=== PATIENT | female | born 1955 | race Two or more races ===

== ENCOUNTER 2018-01-07 16:19 | Observation (INO) | payer SELFPAY ==
[2018-01-07] MEDS ORDERED: Sodium Chloride 0.9% 1,000 ML IV STA (19:58)
--- NOTE | 2018-01-07 20:11 | ED PDOC ---
HPI: Abdomen Time Seen by Provider: 01/07/18 19:32 Chief Complaint (Nursing): Abdominal Pain Chief Complaint (Provider): abdominal pain History Per: Patient History/Exam Limitations: no limitations Onset/Duration Of Symptoms: Days (x4), Worse Since (onset) Current Symptoms Are (Timing): Still Present Associated Symptoms: Nausea, Vomiting (4 episodes), Constipation. denies: Fever , Chills, Chest Pain Last Bowel Movement: Days Ago (x4) Additional Complaint(s): Noel Driver is a 62 year old female, with a past medical history of breast cancer, mastectomy, HTN, dyslipidemia and diabetes, who presents to the emergency department complaining of a progressively worsening abdominal pain associated with nausea and vomit onset for x4 days. Patient reports x4 episodes of vomiting yesterday, and no bowel movements for the past 4 days, only gas. She saw Dr. Groves who evaluated and referred her here for further workout. Patient was seen last week and told to have an MRI but she was unable to schedule. She denies any fever, chills, chest pain or shortness of breath. No further medical complaints. PMD: Denis Groves Past Medical History Reviewed: Historical Data, Nursing Documentation, Vital Signs Vital Signs: Last Vital Signs Temp 97.6 F 01/08/18 03:06 Pulse 71 01/08/18 04:06 Resp 20 01/08/18 04:06 BP 143/80 01/08/18 03:06 Pulse Ox 100 01/08/18 04:06 - Medical History PMH: Diabetes, HTN, Hyperlipidemia Other PMH: breast cancer - Surgical History Surgical History: No Surg Hx Other surgeries: mastectomy - Family History Family History: States: Unknown Family Hx - Social History Current smoker - smoking cessation education provided: No Alcohol: None Drugs: Denies - Immunization History Hx Tetanus Toxoid Vaccination: No Hx Influenza Vaccination: No Hx Pneumococcal Vaccination: No - Home Medications Home Medications: Ambulatory Orders Medication Instructions Recorded Cyclobenzaprine [Flexeril] 5 mg PO HS 01/08/18 - Allergies Allergies/Adverse Reactions: Allergies Allergy/AdvReac Type Severity Reaction Status Date / Time No Known Allergies Allergy Verified 01/07/18 16:53 Review of Systems ROS Statement: Except As Marked, All Systems Reviewed And Found Negative Constitutional: Negative for: Fever, Chills Cardiovascular: Negative for: Chest Pain Respiratory: Negative for: Shortness of Breath Gastrointestinal: Positive for: Nausea, Vomiting (4 episodes), Abdominal Pain, Constipation Physical Exam - Reviewed Nursing Documentation Reviewed: Yes Vital Signs Reviewed: Yes - Physical Exam Appears: Positive for: Non-toxic, No Acute Distress Head Exam: Positive for: ATRAUMATIC, NORMAL INSPECTION, NORMOCEPHALIC Skin: Positive for: Normal Color, Warm, Dry Eye Exam: Positive for: Normal appearance Neck: Positive for: Painless ROM, Supple Cardiovascular/Chest: Positive for: Regular Rate, Rhythm. Negative for: Murmur Respiratory: Positive for: Normal Breath Sounds. Negative for: Respiratory Distress Gastrointestinal/Abdominal: Positive for: Bowel Sounds (hypoactive), Tenderness (mildly diffused), Distended Extremity: Positive for: Normal ROM. Negative for: Deformity, Swelling Neurologic/Psych: Positive for: Alert, Oriented. Negative for: Motor/Sensory Deficits - Laboratory Results Result Diagrams: 01/07/18 20:58 01/07/18 20:58 - ECG O2 Sat by Pulse Oximetry: 98 (RA) Pulse Ox Interpretation: Normal Medical Decision Making Medical Decision Making: Initial Impression: 62 y/o [place] island[place] female in setting of constipation, nausea and vomit Initial Plan: --Abd Pelvis IV Contrast [CT] --EKG --CMP --Lipase --Urine dipstick --CBC w/ differential --PTT --PT --Chest portable [RAD] --Glucose, POC --Morphine 2 mg IVP --Sodium Chlrodei 1,000 ml IV 1,000 mls/hr --Reglan 10 mg IVPB --Reevaluation 00:06 EXAM: CT Abdomen and Pelvis With Intravenous Contrast CLINICAL HISTORY: 62 years old, female; Pain; Abdominal pain; Localized; Other: Also back pain; Prior surgery; Surgery date: 6+ months; Surgery type: Patient states: Hysterectomy; Patient HX: Mastectomy left breast; Additional info: Possible sbo TECHNIQUE: Axial computed tomography images of the abdomen and pelvis with intravenous contrast. All CT scans at this facility use one or more dose reduction techniques, viz.: automated exposure control; ma/kV adjustment per patient size (including targeted exams where dose is matched to indication; i.e. head); or iterative reconstruction technique. Coronal and sagittal reformatted images were created and reviewed. CONTRAST: 80 mL of [id number] administered intravenously. COMPARISON: No relevant prior studies available. FINDINGS: Lower thorax: Borderline cardiomegaly. Mild atelectasis/scarring. LEFT mastectomy. Probable small hiatal hernia. ABDOMEN: Liver: Several hypodense lesions, up to 1.2 cm in size, indeterminate by CT criteria. Gallbladder and bile ducts: Tiny calcified gallstone. No significant ductal dilation. Pancreas: No ductal dilation. No mass. Spleen: No splenomegaly. Adrenals: No mass. Kidneys and ureters: No mass. No hydronephrosis. Stomach and bowel: Moderate to large amount of stool within colon. Mild dilatation of cecum/ascending colon. No definite mural thickening. No obstruction. Appendix: Borderline enlarged mid appendix, 6-7 mm in diameter. No definite associated inflammatory stranding. PELVIS: Bladder: Unremarkable. Reproductive: Unremarkable as visualized. ABDOMEN and PELVIS: Intraperitoneal space: No significant fluid collection. No free air. Bones/joints: Chronic L5 pars defects with anterolisthesis. Degenerative changes of lower lumbar spine. Mild compression deformity inferior end plate L2 vertebral body, age indeterminate. Mild wedge deformity T11 vertebral body, age indeterminate. Mild increased density T11, L2 vertebral bodies, indeterminate. Soft tissues: Tiny umbilical hernia containing fat. Vasculature: Mild atherosclerotic disease. No aneurysm. Linear filling defects versus admixture within common femoral veins. Lymph nodes: No pathologically enlarged lymph nodes. IMPRESSION: 1. Borderline enlarged appendix. No definite inflammation. Clinical correlation is needed. 2. Liver lesions, indeterminate. Metastatic disease not excluded. Recommend MRI. 3. Compression deformities/sclerosis of vertebral bodies. Metastatic disease not excluded. Recommend MRI. 4. Filling defects versus admixture within common femoral veins. Suggest ultrasound. 5. Incidental/non-acute findings are described above. THIS REPORT CONTAINS FINDINGS THAT MAY BE CRITICAL TO PATIENT CARE. The findings were verbally communicated via telephone conference with Rai Romero at 12:06 AM EDT on 01/08/2018. The findings were acknowledged and understood. --patient will be place on observation due to consistent abdominal pain and indeterminate liver lesions in setting of known breast cancer. --Patient case discussed with Dr. Groves, who is her PMD, and will be accepting her care. Scribe Attestation: Documented by Santo Adrian, acting as a scribe for Rai Palm MD Provider Scribe Attestation: All medical record entries made by the Scribe were at my direction and personally dictated by me. I have reviewed the chart and agree that the record accurately reflects my personal performance of the history, physical exam, medical decision making, and the department course for this patient. I have also personally directed, reviewed, and agree with the discharge instructions and disposition. Disposition - Clinical Impression Clinical Impression: Abdominal pain, Constipation - Patient ED Disposition Is Patient to be Admitted: Yes Discussed With DrAnnabelle: Denis Groves Doctor Will See Patient In The: Hospital Counseled Patient/Family Regarding: Studies Performed, Diagnosis - Disposition Disposition Time: 00:06 Condition: FAIR
[2018-01-07 21:08] LABS: BASO % 0.5 % (0.0-2.0); EOS % 0.5 % (0.0-4.0); HEMOGLOBIN 12.9 g/dL (12.0-16.0); LYMPH % 10.3 % (20.0-40.0); MEAN CELL VOLUME 90.7 fl (81.0-99.0); MEAN CORPUSCULAR HEMOGLOBIN 30.7 pg (27.0-31.0); MEAN CORPUSCULAR HGB CONC 33.8 g/dL (33.0-37.0); MEAN PLATELET VOLUME 7.4 fl (7.2-11.7); MONO # 0.7 K/uL (0.0-0.8); NEUT # 7.8 K/uL (1.8-7.0); NEUT % 81.7 % (50.0-75.0); RBC 4.21 Mil/uL (3.80-5.20); RED CELL DISTRIBUTION WIDTH 12.7 % (11.5-14.5); WHITE BLOOD COUNT 9.5 K/uL (4.8-10.8)
[2018-01-07 21:16] LABS: PARTIAL THROMBOPLASTIN TIME 32.4 Seconds (25.6-37.1); PROTHROMBIN TIME 10.8 Seconds (9.8-13.1)
[2018-01-07 21:23] LABS: ALB/GLOB RATIO 1.2 (1.0-2.1); ALBUMIN 4.7 g/dL (3.5-5.0); ALT/SGPT 43 U/L (9-52); AST/SGOT 77 U/L (14-36); BLOOD UREA NITROGEN 28 mg/dl (7-17); CALCIUM 10.5 mg/dL (8.4-10.2); GFR AFRICAN-AMERICAN > 60; GFR NON-AFRICAN AMERICAN 50; LIPASE 273 U/L (23-300)
[2018-01-07] MEDS ORDERED: Iodixanol 320 MG/ML 100 ML BOTTLE IV ONE (21:37)
[2018-01-07] MEDS ORDERED: Sodium Chloride 0.9% 100 ML ONE (21:38)
--- NOTE | 2018-01-08 00:06 | CT ---
EXAM: CT Abdomen and Pelvis With Intravenous Contrast CLINICAL HISTORY: 62 years old, female; Pain; Abdominal pain; Localized; Other: Also back pain; Prior surgery; Surgery date: 6+ months; Surgery type: Patient states: Hysterectomy; Patient HX: Mastectomy left breast; Additional info: Possible sbo TECHNIQUE: Axial computed tomography images of the abdomen and pelvis with intravenous contrast. All CT scans at this facility use one or more dose reduction techniques, viz.: automated exposure control; ma/kV adjustment per patient size (including targeted exams where dose is matched to indication; i.e. head); or iterative reconstruction technique. Coronal and sagittal reformatted images were created and reviewed. CONTRAST: 80 mL of [id number] administered intravenously. COMPARISON: No relevant prior studies available. FINDINGS: Lower thorax: Borderline cardiomegaly. Mild atelectasis/scarring. LEFT mastectomy. Probable small hiatal hernia. ABDOMEN: Liver: Several hypodense lesions, up to 1.2 cm in size, indeterminate by CT criteria. Gallbladder and bile ducts: Tiny calcified gallstone. No significant ductal dilation. Pancreas: No ductal dilation. No mass. Spleen: No splenomegaly. Adrenals: No mass. Kidneys and ureters: No mass. No hydronephrosis. Stomach and bowel: Moderate to large amount of stool within colon. Mild dilatation of cecum/ascending colon. No definite mural thickening. No obstruction. Appendix: Borderline enlarged mid appendix, 6-7 mm in diameter. No definite associated inflammatory stranding. PELVIS: Bladder: Unremarkable. Reproductive: Unremarkable as visualized. ABDOMEN and PELVIS: Intraperitoneal space: No significant fluid collection. No free air. Bones/joints: Chronic L5 pars defects with anterolisthesis. Degenerative changes of lower lumbar spine. Mild compression deformity inferior end plate L2 vertebral body, age indeterminate. Mild wedge deformity T11 vertebral body, age indeterminate. Mild increased density T11, L2 vertebral bodies, indeterminate. Soft tissues: Tiny umbilical hernia containing fat. Vasculature: Mild atherosclerotic disease. No aneurysm. Linear filling defects versus admixture within common femoral veins. Lymph nodes: No pathologically enlarged lymph nodes. IMPRESSION: 1. Borderline enlarged appendix. No definite inflammation. Clinical correlation is needed. 2. Liver lesions, indeterminate. Metastatic disease not excluded. Recommend MRI. 3. Compression deformities/sclerosis of vertebral bodies. Metastatic disease not excluded. Recommend MRI. 4. Filling defects versus admixture within common femoral veins. Suggest ultrasound. 5. Incidental/non-acute findings are described above. THIS REPORT CONTAINS FINDINGS THAT MAY BE CRITICAL TO PATIENT CARE. The findings were verbally communicated via telephone conference with Rai Romero at 12:06 AM EDT on 01/08/2018. The findings were acknowledged and understood.
[2018-01-08] MEDS ORDERED: Morphine 4 MG/ML VIAL IVP ONE (03:30)
[2018-01-08] MEDS: Dextrose 5%/Lactated Ringer's 1,000 ML IV SCH ×2 (09:10→17:58)
--- NOTE | 2018-01-08 09:20 | RAD ---
HISTORY: chest pain COMPARISON: No prior. FINDINGS: LUNGS: No active pulmonary disease. PLEURA: No significant pleural effusion identified, no pneumothorax apparent. CARDIOVASCULAR: Normal. OSSEOUS STRUCTURES: Degenerative changes. VISUALIZED UPPER ABDOMEN: Normal. OTHER FINDINGS: Left axillary surgical clips. IMPRESSION: No active disease.
[2018-01-08] MEDS ORDERED: Magnesium Citrate Oral SOL (300 ml) PO ONE (11:19)
--- NOTE | 2018-01-08 12:31 | CP.PCM.HP ---
History of Present Illness - History of Present Illness History of Present Illness: 62 year old female, with a past medical history of breast cancer, mastectomy, HTN, dyslipidemia and diabetes, was admitted to hosp complaining of a progressively worsening abdominal pain associated with nausea and vomiting. Abd pain is more localized to L/hemiabdomen with radiation to back. Denies urinary symptoms. Patient reports x4 episodes of vomiting yesterday, and no bowel movements for the past 4 days, only gas. Was seen at the office and sent to ED for further eval. She denies any fever, chills, chest pain or shortness of breath. No further medical complaints. Denies Hx of constipation in the past. CT of abd and pelvis on ED showed dilated appendix, fecal impaction, liver lesions, lumbar spine lesions. Present on Admission - Present on Admission Any Indicators Present on Admission: No Review of Systems - Review of Systems All systems: reviewed and no additional remarkable complaints except (Those described on HPI) Past Patient History - Past Medical History & Family History Past Medical History?: Yes - Past Social History Alcohol: None Drugs: Denies - CARDIAC Hx Hypertension: Yes - PULMONARY Hx Respiratory Disorders: No - NEUROLOGICAL Hx Neurological Disorder: No - HEENT Hx HEENT Problems: No - RENAL Hx Chronic Kidney Disease: No - ENDOCRINE/METABOLIC Hx Endocrine Disorders: Yes Hx Diabetes Mellitus Type 2: Yes - HEMATOLOGICAL/ONCOLOGICAL Hx Blood Disorders: No - INTEGUMENTARY Hx Dermatological Problems: No - MUSCULOSKELETAL/RHEUMATOLOGICAL Hx Musculoskeletal Disorders: No Hx Falls: Yes - GASTROINTESTINAL Hx Gastrointestinal Disorders: No - GENITOURINARY/GYNECOLOGICAL Hx Genitourinary Disorders: Yes Other/Comment: breast ca - PSYCHIATRIC Hx Psychophysiologic Disorder: No Hx Substance Use: No - SURGICAL HISTORY Hx Surgeries: Yes Hx Mastectomy: Yes Hx Thyroidectomy: Yes Other/Comment: ovary removal - ANESTHESIA Hx Anesthesia: Yes Hx Anesthesia Reactions: No Meds Allergies/Adverse Reactions: Allergies Allergy/AdvReac Type Severity Reaction Status Date / Time No Known Allergies Allergy Verified 01/07/18 16:53 Physical Exam - Constitutional Appears: Non-toxic - Eye Exam Eye Exam: PERRL - ENT Exam ENT Exam: Mucous Membranes Moist - Respiratory Exam Respiratory Exam: Clear to Auscultation Bilateral, NORMAL BREATHING PATTERN. absent: Decreased Breath Sounds, Prolonged Expiratory Phase, Rales, Rhonchi, Wheezes, Respiratory Distress - Cardiovascular Exam Cardiovascular Exam: REGULAR RHYTHM, +S1, +S2. absent: Gallop, Systolic Murmur - GI/Abdominal Exam GI & Abdominal Exam: Soft, Tenderness (Mild, diffuse). absent: Distended, Guarding, Rebound, Rigid - Extremities Exam Extremities exam: Positive for: normal inspection. Negative for: calf tenderness, pedal edema, tenderness - Back Exam Back exam: absent: CVA tenderness (L), CVA tenderness (R) - Neurological Exam Neurological exam: Alert, Oriented x3 - Psychiatric Exam Psychiatric exam: Normal Affect, Normal Mood - Skin Skin Exam: Normal Color, Warm Results - Vital Signs Recent Vital Signs: Last Vital Signs Temp 97.7 F 01/08/18 07:56 Pulse 78 01/08/18 07:56 Resp 18 01/08/18 07:56 BP 118/76 01/08/18 07:56 Pulse Ox 96 01/08/18 07:56 - Labs Result Diagrams: 01/07/18 20:58 01/07/18 20:58 Labs: Laboratory Results - last 24 hr 01/07/18 01/07/18 01/07/18 20:58 20:58 20:58 WBC 9.5 RBC 4.21 Hgb 12.9 Hct 38.2 MCV 90.7 MCH 30.7 MCHC 33.8 RDW 12.7 Plt Count 358 MPV 7.4 Neut % (Auto) 81.7 H Lymph % (Auto) 10.3 L [place] % (Auto) 7.0 Eos % (Auto) 0.5 Baso % (Auto) 0.5 Neut # (Auto) 7.8 H Lymph # (Auto) 1.0 [place] # (Auto) 0.7 Eos # (Auto) 0.0 Baso # (Auto) 0.0 PT 10.8 INR 1.0 APTT 32.4 Sodium 140 Potassium 4.3 Chloride 93 L Carbon Dioxide 31 H Anion Gap 20 BUN 28 H Creatinine 1.1 Est GFR ( Amer) > 60 Est GFR (Non-Af Amer) 50 POC Glucose (mg/dL) Random Glucose 123 H Calcium 10.5 H Total Bilirubin 0.6 AST 77 H ALT 43 Alkaline Phosphatase 109 Total Protein 8.5 H Albumin 4.7 Globulin 3.8 Albumin/Globulin Ratio 1.2 Lipase 273 01/07/18 21:12 WBC RBC Hgb Hct MCV MCH MCHC RDW Plt Count MPV Neut % (Auto) Lymph % (Auto) [place] % (Auto) Eos % (Auto) Baso % (Auto) Neut # (Auto) Lymph # (Auto) [place] # (Auto) Eos # (Auto) Baso # (Auto) PT INR APTT Sodium Potassium Chloride Carbon Dioxide Anion Gap BUN Creatinine Est GFR ( Amer) Est GFR (Non-Af Amer) POC Glucose (mg/dL) 93 Random Glucose Calcium Total Bilirubin AST ALT Alkaline Phosphatase Total Protein Albumin Globulin Albumin/Globulin Ratio Lipase Assessment & Plan - Assessment and Plan (Free Text) Assessment: 62 y/o with Hx of breast cancer, s/pmastectomy, DM and HTn admitted for abd pain Fecal impaction no BM for 4 days Given enema and laxatives yestrday Dulcolax MA and Mg citrate ordered IV fluids NPO until evaluated by GI No hx of previous colonoscopy. FOBT neg in office GI consulted Liver lesions Hx of breast Ca GI consult appreciated F/U MRI abd Lumbar spine finding on abd CT Pain radiates to back F/U MRI lumbar spine Hx of breast Ca
[2018-01-08] MEDS ORDERED: Sodium Chloride 0.9% 1,000 ML IV SCH (12:45)
[2018-01-08 16:03] VITALS: BP 144/98; PULSE 89; RESP 20; TEMP 98; O2SAT 97
--- NOTE | 2018-01-08 21:20 | CARD ---
APPROVED REPORT EKG Measurement Heart [id number] <Conclusion> Normal sinus rhythm Normal ECG
--- NOTE | 2018-01-08 22:20 | CON ---
DATE: 01/08/2018 REFERRED BY: Denis Groves MD HISTORY OF PRESENT ILLNESS: This is very pleasant 62-year-old woman who was referred for evaluation after being admitted with abdominal pain, discomfort, and constipation for several days. The patient had a CAT scan done, which showed a large amount of stool throughout the colon and some indeterminate liver lesions. At the time of my evaluation, she has been receiving multiple laxatives, she has had 5 bowel movements thus far today and feels completely alleviated. She denies at this moment any nausea, vomiting, odynophagia, or dysphagia. She states she has an appetite. She has had no heartburn. Her abdominal pain has been relieved. She has no blood per rectum or melena despite the 5 bowel movements today and she feels significantly better. Of note, however, she has never had any type of colorectal cancer screening. MEDICATIONS AT HOME: She is on anti-lipid medication, oral hypoglycemics as well as oral hypertensive medication. She takes multiple vitamins. ALLERGIES: NO KNOWN DRUG ALLERGIES. PAST MEDICAL HISTORY: She has a history of hypertension, hyperlipidemia, non-insulin requiring diabetes mellitus and a history of breast cancer for which she underwent left mastectomy and received chemotherapy at that time and is on maintenance therapy now orally. PAST SURGICAL HISTORY: She had a left mastectomy, otherwise noncontributory. FAMILY HISTORY: Noncontributory. SOCIAL HISTORY: No tobacco or drug use. PHYSICAL EXAMINATION: GENERAL: Well-developed and well-nourished woman, awake, alert, and oriented x3, and in no acute distress at the present time. VITAL SIGNS: Stable. She is afebrile. ABDOMEN: Soft with good bowel sounds,nontender, and nondistended. No hepatosplenomegaly. No palpable masses or lesions. LABORATORY DATA: Her laboratories are reviewed, they are essentially unremarkable except for mild elevation of her ALT. CAT scan is as mentioned in the HPI. IMPRESSION AND PLAN: A 62-year-old woman with history of breast cancer who has indeterminate lesions of the liver, unclear etiology; however, she is undergoing an MRI of the abdomen to fully evaluate this. Regarding her constipation, she is to be stop laxatives and only continue her lactulose 20 g at bedtime for now. I have advanced her diet. I discussed with Dr. Groves that the patient should have a colonoscopy, but this could be performed as an outpatient basis. She will follow up with us as an outpatient and we will get that done as soon as possible. Huber Barajas MD
[2018-01-09] MEDS ORDERED: Pantoprazole 40 mg EC Tab PO SCH (09:00)
== END 2018-01-08 20:45 | disposition home or self-care (01) ==
LOC: H.ER 16:19 → H.ERHOLD 01-08 00:16 → H.MEDSURG1 01-08 02:30
PROVIDERS: ADMIT Family Medicine; ATTEND Family Medicine
DX: K56.41 Fecal impaction (principal); Z90.12 Acquired absence of left breast and nipple; E11.9 Type 2 diabetes mellitus without complications; I10 Essential (primary) hypertension; E78.5 Hyperlipidemia, unspecified; K76.9 Liver disease, unspecified; C50.912 Malignant neoplasm of unspecified site of left female breast; Z92.21 Personal history of antineoplastic chemotherapy
CPT/HCPCS: 71045; 74177; 80053; 82948; 83519; 83690; 83970; 84155; 84165; 85025; 85610; 85730; 93005; 96374; 99284; G0378; J2270; J2765; J7040; J7120; Q9967